=== PATIENT | male | born 1955 | race Caucasian/White ===

== ENCOUNTER 2017-03-15 18:29 | Emergency (ER) | payer BC ==
[2017-03-15 18:34] VITALS: BP 124/87; PULSE 82; RESP 20; TEMP 97.9; O2SAT 98
--- NOTE | 2017-03-15 18:43 | EDPHY ---
H & P Time Seen by Provider: 03/15/17 18:39 HPI/ROS: CHIEF COMPLAINT: Vision changes HISTORY OF PRESENT ILLNESS: This patient is a 61 y/o male complaining of right-sided visual disturbances. This afternoon around 2:30pm, he got in his car to drive to [place] and saw flashes like lightning bolts in the periphery of his right eye. These did not impede his vision and mostly resolved during his drive. When he arrived in [place], he noted what he describes as a fog or veil across his vision with dark edges. He is able to see through the veil and denies blurry vision. He initially thought this was a "flood of floaters" as he has had floaters in the past, but now believes this is different from his previous floaters. He stayed at his friend's house for about 1.5 hours and then drove back to [place]. While driving, the lightning flashes returned, and after completing an internet search regarding his symptoms, he became concerned for possibility of retinal or vitreous detachment and presents for evaluation. Currently, the flashes are intermittent and seem particularly triggered by eye movement. He states his eye felt "strained". He sees a fog or veil, but is able to see through it. The veil appears to move and is not fixed. He denies recent illness or trauma. No headache, eye pain, or other associated symptoms. REVIEW OF SYSTEMS: A 10 point review of systems was performed and is negative with the exception of the elements mentioned in the history of present illness. Past Medical/Surgical History: 1. Environmental allergies 2. BPH Social History: Nonsmoker. at bedside. . Smoking Status: Never smoked Physical Exam: General Appearance: Alert, pleasant Visual Acuity: noted from Nurse's notes, 20/20 OD Lids: no proptosis, no periorbital erythema or swelling, no vesicles Conjunctivae: No erythema, no discharge Pupils: equal round and reactive to light, EOMI Cornea: Normal Anterior chamber: Clear, no hyphema Visual herrera by confrontation: normal Constitutional: Initial Vital Signs Temperature (C) 36.6 C 03/15/17 18:32 Heart Rate 82 03/15/17 18:32 Respiratory Rate 20 03/15/17 18:32 Blood Pressure 124/87 H 03/15/17 18:32 O2 Sat (%) 98 03/15/17 18:32 O2 Delivery Mode Room Air Allergies/Adverse Reactions: No Known Allergies Allergy (Unverified 03/15/17 18:31) Home Medications: Medication Instructions Recorded Dutasteride 03/15/17 Hydroxyzine HCl 03/15/17 Oxybutynin 03/15/17 ZYRTEC 03/15/17 Medical Decision Making ED Course/Re-evaluation: Clinical presentation concerning for vitreous hemorrhage/detachment, retinal detachment. [facility] normal. 19:[address] Reed, electric cell tender. He is comfortable with outpatient followup this week. Reassessed patient. Plan to d/c home in good condition. Discussed follow up with Dr. Reed as well as return precautions. Will return for change in vision or any concerns. The patient is comfortable with this plan. Differential Diagnosis: includes though not limited to retinal detachment, hyphema, acute iritis, corneal abrasion, retinal vein/artery thrombosis Departure - Departure Disposition: Home, Routine, Self-Care Clinical Impression: Flashing lights seen, Transient vision disturbance of right eye Condition: Good Instructions: Blurred Vision (ED) Additional Instructions: 1. The attached instructions do not match your condition perfectly, but include helpful information regarding visual disturbances. 2. Follow up with ophthalmology next week, call Thursday for an appointment. Call his office today or tomorrow if you note increasing frequency of flashes, changes in or loss of vision, or other changes in condition. 3. Return to the emergency department if you develop pain in your eye, loss of vision or further changes in your vision, or other worsening of condition. Referrals: [facility] YOUNG [Other] - As per Instructions Ha Reed MD [Medical Doctor] - As per Instructions Report Scribed for: Mable Mueller Report Scribed by: Britni Oliveros Date of Report: 03/15/17 Time of Report: 18:42 Physician Review and Approval Statement: 03/15/17 18:42 Portions of this note were transcribed by a electromedical service engineer. I personally performed a history, physical exam, medical decision making, and confirmed accuracy of information the transcribed note.
== END 2017-03-15 20:05 | disposition home or self-care (01) ==
DX: H53.121 Transient visual loss, right eye (principal)